=== PATIENT | male | born 1965 | race Caucasian/White ===

== ENCOUNTER → 2016-09-02 | Outpatient (CLI) | payer BC ==
[2016-09-02 13:07] LABS: HEMATOCRIT 42.4 % (42-52); MEAN CELL VOLUME 95.9 fL (80-100); MEAN CORPUSCULAR HEMOGLOBIN 32.8 pg (25-34); MEAN CORPUSCULAR HGB CONC 34.2 g/dl (32-36); MEAN PLATELET VOLUME 11.8 fL (7.4-10.4); PLATELET COUNT 203 K/uL (130-400); RED BLOOD COUNT 4.42 M/uL (4.7-6.1); WHITE BLOOD COUNT 4.33 K/uL (4.8-10.8)
[2016-09-02 13:20] LABS: ALT/SGPT 22 U/L (12-78); BLOOD UREA NITROGEN 10 mg/dl (7-18); CALCIUM 9.6 mg/dl (8.5-10.1); CARBON DIOXIDE 27 mmol/L (21-32); CHLORIDE 109 mmol/L (98-107); CREATININE 0.97 mg/dl (0.60-1.40); GLUCOSE 88 mg/dl (70-99); POTASSIUM 4.1 mmol/L (3.5-5.1); SODIUM 142 mmol/L (136-145)
[2016-09-02 13:24] LABS: ALB/GLOB RATIO 1.3 (0.9-2); ALKALINE PHOSPHATASE 72 U/L (45-117); AST/SGOT 18 U/L (15-37); FERRITIN 403.7 ng/ml (8.0-388.0); TOTAL IRON BINDING CAPACITY 368 mcg/dl (250-450)
[2016-09-06 06:37] LABS: VIT B1 PLASMA(THIAMIN)**90353 73 nmol/L (8-30)
== END | disposition home or self-care (01) ==
LOC: C.LABMFLN 09:50
PROVIDERS: ATTEND Family Medicine
DX: F10.10 Alcohol abuse, uncomplicated (principal)

== ENCOUNTER → 2016-11-30 | Outpatient (CLI) | payer BC ==
[2016-11-30 14:26] LABS: CHOLESTEROL/HDL RATIO 2.1
[2016-11-30 14:29] LABS: ALT/SGPT 18 U/L (12-78); BLOOD UREA NITROGEN 13 mg/dl (7-18); BUN/CREATININE RATIO 14.9 (10-20); CALCIUM 9.1 mg/dl (8.5-10.1); CARBON DIOXIDE 27 mmol/L (21-32); CHLORIDE 106 mmol/L (98-107); GLUCOSE 85 mg/dl (70-99); POTASSIUM 3.9 mmol/L (3.5-5.1); SODIUM 141 mmol/L (136-145)
[2016-11-30 14:34] LABS: ALB/GLOB RATIO 1.2 (0.9-2); ALKALINE PHOSPHATASE 85 U/L (45-117); AST/SGOT 17 U/L (15-37); FERRITIN 351.3 ng/ml (8.0-388.0)
== END | disposition home or self-care (01) ==
LOC: C.LABMFLN 08:09
PROVIDERS: ATTEND Family Medicine
DX: E55.9 Vitamin D deficiency, unspecified (principal); K91.2 Postsurgical malabsorption, not elsewhere classified; Z98.84 Bariatric surgery status; E61.1 Iron deficiency; E53.9 Vitamin B deficiency, unspecified

== ENCOUNTER → 2017-05-30 | Outpatient (CLI) | payer BC ==
[2017-05-30 12:49] LABS: HEMOGLOBIN 14.5 g/dL (14.0-18.0)
== END | disposition home or self-care (01) ==
LOC: C.LABMFLN 09:48
PROVIDERS: ATTEND Family Medicine
DX: Z98.84 Bariatric surgery status (principal)

== ENCOUNTER → 2017-09-21 | Outpatient (CLI) | payer OTHER, BC ==
[~2017-09-21] MED LIST: BUPRTAB51 PO; BUSP-8 PO; CHOL1TAB46 PO; CLON1TAB5 PO; CYAN100020 PO; ESCI10TA17 PO; FENO160T PO; FERR1TAB23 PO; MULT-506 PO; PANT40TA PO; QUET1TAB34 PO; THIA1TAB11 PO; TPRSR/100 PO
[2017-09-21 16:36] LABS: BASO % 0.2 %; BASO ABS # 0.02 K/uL (0-0.2); EOS % 1.2 %; HEMATOCRIT 44.4 % (42-52); IG# 0.01 K/uL (0.00-0.02); LYMPH % 21.5 %; LYMPH ABS # 1.73 K/uL (1.2-3.4); MEAN CELL VOLUME 95.9 fL (80-100); MEAN CORPUSCULAR HEMOGLOBIN 32.4 pg (25-34); MEAN CORPUSCULAR HGB CONC 33.8 g/dl (32-36); MEAN PLATELET VOLUME 11.2 fL (7.4-10.4); MONO % 2.6 %; MONO ABS # 0.21 K/uL (0.11-0.59); NEUT % 74.4 %; NEUT ABS # 5.99 K/uL (1.4-6.5); PLATELET COUNT 216 K/uL (130-400); RED CELL DISTRIBUTION WIDTH CV 13.4 % (11.5-14.5); RED CELL DISTRIBUTION WIDTH SD 46.7 fL (36.4-46.3); WHITE BLOOD COUNT 8.06 K/uL (4.8-10.8)
[2017-09-21 17:13] LABS: BLOOD UREA NITROGEN 16 mg/dl (7-18); CALCIUM 8.8 mg/dl (8.5-10.1); CARBON DIOXIDE 23 mmol/L (21-32); CREATININE 1.28 mg/dl (0.60-1.40); GLUCOSE 277 mg/dl (70-99); POTASSIUM 4.3 mmol/L (3.5-5.1); SODIUM 139 mmol/L (136-145)
== END | disposition home or self-care (01) ==
LOC: C.CPL 15:14
PROVIDERS: ATTEND Orthopaedic Surgery
DX: Z01.810 Encounter for preprocedural cardiovascular examination (principal); Z01.812 Encounter for preprocedural laboratory examination; M25.511 Pain in right shoulder; R94.31 Abnormal electrocardiogram [ECG] [EKG]

== ENCOUNTER → 2017-10-20 | Day surgery (SDC) | payer OTHER, BC ==
[2017-09-27 14:05] VITALS: BMI 31.0
[2017-10-13 12:38] VITALS: Ht 170.2 cm; Wt 90.9 kg
[~2017-10-20] VITALS: Ht 170.2 cm; Wt 90.9 kg
[~2017-10-20] MED LIST changes: +ATROPINE SULFATE 0.1 MG/ML 5ML SYR IV PRN; +BUPIVACAINE 0.25% 30 ML VIAL INJ ONE; +BUPIVACAINE 0.25% 30 ML VIAL ONE; +CEFAZOLIN 2000MG IV PUSH 15 ML IV SCH; +CLON1TAB10 PO; -CLON1TAB5 PO; +DEXAMETHASONE SOD INJ 4 MG/ML VIAL ONE; +EpHEDrine SULFATE INJ 50 MG/ML AMP IV PRN; +EpINEphrine INJ 1MG/ML AMP 1 MG/ML AMP INJ ONE; +EpINEphrine INJ 1MG/ML AMP 1 MG/ML AMP IRRIG ONE; +EpINEphrine INJ 1MG/ML AMP 1 MG/ML AMP ONE; +FENTANYL CITRATE INJ 50 MCG/1 ML 2 ML VIAL ONE; +HYDR-5688 PO; +HYDROCODONE/ACETAMIN 5/325MG TAB ONE; +HYDROmorphone INJ 1 MG/ML SYR IV PRN; +KETO10TA PO; +KETOROLAC TROMETHAMINE 30 MG/ML VIAL IV. PRN; +KETOROLAC TROMETHAMINE 30 MG/ML VIAL ONE; +LACTATED RINGER'S 1000ML 1,000 ML IV SCH; +LIDOCAINE HCL 2% 2 ML VIAL (20MG/ML) ONE; +MIDAZOLAM HCL 1 MG/ML 2ML VIAL ONE; +ONDANSETRON INJ 2 MG/ML 2 ML VIAL IV PRN; +ONDANSETRON INJ 2 MG/ML 2 ML VIAL ONE; +OXYC-57 PO; +OXYCODONE/ACETAMINOPHEN 5-325 TAB PO PRN; +PROPOFOL IV EMULSION 10 MG/ML 20 ML VIAL ONE; +ROPIVACAINE 0.5% 5 MG/ML 30 ML VIAL ONE; +SODIUM CHLORIDE 0.9% 1000ML 1,000 ML IV SCH
--- NOTE | 2017-10-20 10:55 | History & Physical Bridge Note ---
H&P Re-Evaluation Bridge Note: I have examined the patient, reviewed the History & Physical and in the interval since the performance of the History & Physical I have noted the following changes of clinical significance: No changes noted
--- NOTE | 2017-10-20 14:18 | [facility] Post Operative Brief Note ---
Immediate Operative Summary Operative Date Oct 20, 2017. Pre-Operative Diagnosis Left shoulder rotator cuff tear Post-Operative Diagnosis Same as preop Procedure(s) Performed Left Shoulder Arthroscopy With Small Rotator Cuff Repair and biceps tenodesis Surgeon Dr. Infante Lost And Found Clerk Surgeon(s) Luis Antonio Green PA-C Estimated Blood Loss 5 mL Findings Consistent with Post-Op Diagnosis Specimens None Anesthesia Type General Regional
--- NOTE | 2017-10-20 14:26 | Discharge Instructions-SurgCtr ---
Discharge Instructions Date of Service Oct 20, 2017. Visit Reason for Visit: Full Thickness Rotator Cuff Tear, Left Shoulder Discharge Discharge Diagnosis / Problem: SAME ABOVE Discharge Goals Goal(s): Decrease discomfort, Improve function Activity Recommendations Activity Limitations: as noted below Lifting Limitations: until after follow-up appointment Exercise/Sports Limitations: until after follow-up appointment Anesthesia . Post Anesthesia Instructions: If you have had General Anesthesia or IV Sedation: * Do not drive today. * Resume driving when surgeon permits. * Do not make important decisions or sign legal documents today. * Call surgeon for: 1. Temperature elevations greater than 101 degrees F. 2. Uncontrollable pain. 3. Excessive bleeding. 4. Persistent nausea and vomiting. 5. Medication intolerance (nausea, vomiting or rash). * For nausea and vomiting use only clear liquids such as: tea, soda, bouillon until nausea subsides, then gradually increase diet as tolerated. * If you have any concerns or questions, call your surgeon's office. If physician is unavailable and it is an emergency, call 911 or go to the nearest emergency room. . Instructions / Follow-Up Instructions / Follow-Up MEDICATIONS: * Resume previous medications unless instructed otherwise by your surgeon. * Always take pain medication on a full stomach or with food to avoid upset stomach. * Do not drink alcohol or drive while taking narcotics. * Ibuprofen or Tylenol may be taken if narcotic not needed. SPECIAL CARE INSTRUCTIONS: __ None _X_ Keep extremity elevated and iced x 48 hours; apply ice 20-30 minutes 8-10 times/day. May remove at night. __ Sling __24 hrs/day __ Remove at night _X_ Shoulder Immobilizer (MAY REMOVE AFTER 48 HOURS ONLY TO SHOWER) _X_ 24 hrs/day __ Remove at night X__ Dressing __ Maintain until seen in office, may shower with plastic over site _X_ Remove dressings in 24-48 hours and then may shower _X_ Cover incisions with band-aids after showering __ Do not remove steri-strips Call physician if chills or temperature rises above 102 degrees or pain unrelieved by prescribed pain medications at . . Diet Recommendations Home Diet: no limitations Fluid Restriction: None Procedures Procedures Performed: Left Shoulder Arthroscopy With Small Rotator Cuff Repair and biceps tenodesis Pending Studies Studies pending at discharge: no Work Instructions Return To Work: after follow-up Lifting Limitations: NO LIFTING WITH LEFT SHOULDER Medical Emergencies . Who to Call and When: Medical Emergencies: If at any time you feel your situation is an emergency, please call 911 immediately. . Non-Emergent Contact Non-Emergency issues call your: Surgeon Call Non-Emergent contact if: your pain is not controlled, wound has increased drainage, wound has increased redness . . "Provider Documentation" section prepared by Luis Antonio Green. .
--- NOTE | 2017-10-20 14:43 | Anesthesia Progress Nt - [facility] ---
Anesthesia Post Op Note Date & Time Oct 20, 2017 at 14:43 Vital Signs Pain Intensity: 2 Vital Signs Past 12 Hours Date Time Temp Pulse Resp B/P (MAP) Pulse Ox O2 Delivery O2 Flow Rate FiO2 10/20/17 14:24 36.5 90 12 146/95 95 Mask 5 10/20/17 12:52 0 10/20/17 12:47 73 10/20/17 12:47 71 16 96 10/20/17 12:46 120/83 10/20/17 12:42 72 11 96 10/20/17 12:42 73 10/20/17 12:41 110/85 10/20/17 12:37 68 10/20/17 12:37 68 5 95 10/20/17 12:36 126/97 10/20/17 12:32 70 20 99 10/20/17 12:32 70 10/20/17 12:31 134/102 10/20/17 12:27 73 10/20/17 12:27 72 0 94 10/20/17 12:26 120/85 10/20/17 12:22 69 10/20/17 12:22 69 0 97 10/20/17 12:21 123/84 10/20/17 12:17 73 10/20/17 12:17 73 0 97 10/20/17 12:16 121/90 10/20/17 12:12 74 10/20/17 12:12 74 0 95 10/20/17 12:07 73 10/20/17 12:07 73 0 94 10/20/17 12:06 120/91 10/20/17 12:02 70 0 96 10/20/17 12:02 70 10/20/17 12:01 114/79 10/20/17 11:57 0 10/20/17 11:56 115/85 10/20/17 11:46 37.1 70 16 115/85 (95) 100 Room Air Notes Mental Status: alert / awake / arousable, participated in evaluation Pt Amnestic to Procedure: Yes Nausea / Vomiting: adequately controlled Pain: adequately controlled Airway Patency, RR, SpO2: stable & adequate BP & HR: stable & adequate Hydration State: stable & adequate Anesthetic Complications: no major complications apparent
[2017-10-20 15:59] VITALS: BP 119/56; PULSE 101; O2SAT 95
--- NOTE | 2017-10-20 16:04 | OPERATIVE REPORT ---
DATE OF OPERATION: 10/20/2017 PREOPERATIVE DIAGNOSES: Small anterior rotator cuff tear and biceps tendinopathy of the left shoulder. POSTOPERATIVE DIAGNOSES: Small anterior rotator cuff tear and biceps tendinopathy of the left shoulder. PROCEDURES: Left shoulder diagnostic arthroscopy with limited debridement, small rotator cuff repair and arthroscopic biceps tenodesis. SURGEON: Altaf Infante DO VP PATIENT: Luis Antonio Green PA-C, whose assistance was necessary for helping with arthroscopic instrumentation and closure. ANESTHESIA: General with left interscalene nerve block. COMPLICATIONS: None. CONDITION: Stable to PACU. INDICATIONS: Lakisha is a pleasant 52-year-old male who works for [employer]. In March 2017, he was throwing a blade around a band saw and he felt a pop in his left shoulder. MRI and clinical examination were diagnostic for small anterior rotator cuff tear, possible biceps tendinopathy. After failing conservative treatment, he elected to undergo arthroscopy. DESCRIPTION OF PROCEDURE: On 10/20/2017, he arrived at [facility] for the above procedure. He was seen in the preoperative holding area and the operative extremity was identified and signed. He was given antibiotic and a left interscalene nerve block. He was taken back to the operating room, laid on the table in supine position and put under general anesthesia. He was then put into the beachchair position. The left shoulder was prepped and draped in sterile fashion. Time-out was done. The patient's operative extremity was properly identified. A scope was introduced in the posterior portal. Diagnostic arthroscopy showed no cartilage damage to the humeral head or the glenoid. There was a little bit of fraying of the anterior labrum. The biceps tendon was very frayed. There was a small tear of the far anterior supraspinatus. The remainder of the rotator cuff looked okay. An anterior portal was made. A shaver was used to do a limited debridement of the intraarticular structures and the biceps tendon was arthroscopically tenotomized for later tenodesis. The scope was then put into the subacromial space. A lateral portal was made. A shaver was used to do a complete subacromial and subdeltoid bursectomy. An ablator was used to tease the coracoacromial ligament off the undersurface of the acromion. Attention was then turned to the rotator cuff tear. An additional anterolateral portal was made and Junie cannulas were placed in each lateral portals. There was a small far anterior rotator cuff tear. The greater tuberosity was prepared with a ring curette. The biceps tendon was tagged with an Arthrex FiberLink suture. The rotator cuff was fixed with an Arthrex SpeedBridge configuration using a single medial row 4.75 mm BioComposite SwiveLock suture anchor loaded with FiberTapes. The tapes were passed through the tendon at the anticipated articular margin and brought down to a single lateral row SwiveLock suture anchor. This gave a nice knotless SpeedBridge repair. Multiple pictures were taken. The long head of the biceps tendon had been incorporated into the medial anchor to complete an arthroscopic biceps tenodesis. The scope was then placed back into the glenohumeral joint. The articular margin of the rotator cuff had been restored. Pictures were taken. Arthroscopic instruments were removed from the shoulder. Portal sites were closed with 3-0 nylon. He was then placed in a soft dressing and an abduction arm sling. He was then extubated, transferred to a litter and taken to the postanesthesia care unit in stable condition and tolerated the procedure well. I attest to the content of the Intraoperative Record and any orders documented therein. Any exception s are noted below.
== END | disposition home or self-care (01) ==
LOC: X.SURG 11:34
PROVIDERS: ATTEND Orthopaedic Surgery
DX: M75.102 Unspecified rotator cuff tear or rupture of left shoulder, not specified as traumatic (principal); M75.22 Bicipital tendinitis, left shoulder; I10 Essential (primary) hypertension; K21.9 Gastro-esophageal reflux disease without esophagitis; M19.90 Unspecified osteoarthritis, unspecified site; F32.9 Major depressive disorder, single episode, unspecified; Z88.5 Allergy status to narcotic agent